=== PATIENT | female | born 1975 ===

== ENCOUNTER 2016-12-24 07:30 | Observation (INO) | payer MEDICARE ==
[~2016-12-24] VITALS: Ht 162.6 cm; Wt 84.0 kg
[~2016-12-24 07:30] MED LIST: MICROFIBRILLAR COLLAGEN HEMOSTAT 1 GM PKT ONE; OXYMETAZOLINE HCL 0.05% 15 ML NASAL SPRAY ONE
--- NOTE | 2016-12-24 07:53 | MH ---
cc: FILI ZULETA M.D. DATE OF ADMISSION: 12/24/2016 ADMISSION DIAGNOSIS Recurrent peritonsillar abscess. HISTORY OF PRESENT ILLNESS Marisela Mayer is an otherwise healthy 41-year-old woman who has a history of numerous bouts of pharyngitis including two recent admissions as an inpatient for IV antibiotics for left parapharyngeal inflammation and possible abscess. She spent six days in the [facility], followed by three days at [facility] before her symptoms finally subsided. A CT scan was obtained which showed probable abscess in the left peritonsillar area which drained spontaneously. She complains of severe pain associated with fevers and sometimes absence from work. MEDICAL HISTORY Hypertension. Thyroid goiter. PAST SURGICAL HISTORY Surgical history includes total thyroidectomy. MEDICATIONS 1. Atenolol. 2. Levothyroxine. ALLERGIES She has no drug allergies. PHYSICAL EXAMINATION GENERAL: She is alert and cooperative. HEAD: Normocephalic and atraumatic. Face normal. ORAL CAVITY: Teeth in good condition. Tongue and mandible normal. There is moderate hypertrophy of tonsils bilaterally with some drainage from the left tonsil. There is no abscess on inspection or palpation. NECK: No nodes or masses of the larynx. Trachea midline. Well-healed scar overlying the level of the thyroid gland. EARS: Normal auricles, ear canals and tympanic membranes. Fiberoptic nasopharyngoscopy shows deviation of septum and moderate hypertrophy of adenoid tissue partially obstructing the nasopharynx. CHEST: Clear in all schuler. HEART: Regular rate and rhythm. Normal S1-S2. ASSESSMENT 1. Chronic tonsillitis. 2. Recurrent peritonsillar abscess. PLAN After discussion we elected to proceed with adenotonsillectomy. I reviewed the indications, common techniques, risks and benefits and expected postoperative course of the surgery. She expressed understanding and agreed to proceed. She is scheduled for December 24 at [facility] on a Same-Day Surgery basis. MD VIKTORIA Davalos/DAKOTAH /7:37 AM /7:48 AM
[2016-12-24 09:05] VITALS: BP 123/91; PULSE 107; RESP 16; TEMP 98.3; O2SAT 96
[2016-12-24] MEDS ORDERED: ATEN100T PO (09:15)
[2016-12-24] MEDS ORDERED: LEVO-86 PO (09:15)
[2016-12-24 09:23] LABS: HEMATOCRIT 47.5 % (35.0-46.0); MEAN CELL VOLUME 91.9 FL (80.0-100.0); MEAN CORPUSCULAR HEMOGLOBIN 30.6 PG (27.0-34.0); MEAN CORPUSCULAR HGB CONC 33.3 % (32.0-36.0); PLATELET COUNT 222 TH/MM3 (150-450); RED BLOOD COUNT 5.17 MIL/MM3 (4.00-5.30); RED CELL DISTRIBUTION WIDTH 12.8 % (11.6-17.2); REVIEW FLAG FINAL; WHITE BLOOD COUNT 14.8 TH/MM3 (4.0-11.0)
[2016-12-24] MEDS ORDERED: AMPICILLIN-SULBACTAM INJ 3 GM VIAL ONE (09:28)
[2016-12-24] MEDS ORDERED: LACTATED RINGER'S 1000 ML INJ 1,000 ML ONE (09:28)
[2016-12-24] MEDS ORDERED: SODIUM CHLORIDE 0.9% INJ 100 ML ONE (09:29)
[2016-12-24] MEDS ORDERED: MIDAZOLAM HCL 2 MG/2 ML VIAL ONE (10:59)
[2016-12-24] MEDS ORDERED: FAMOTIDINE 20 MG/2 ML VIAL ONE (10:59)
[2016-12-24] MEDS ORDERED: DEXAMETHASONE SOD PHOS 4 MG/ML VIAL ONE (10:59)
[2016-12-24] MEDS ORDERED: SUGAMMADEX SODIUM 200 MG/2 ML VIAL IV PUSH ONE ×2 (11:54)
[2016-12-24] MEDS ORDERED: PROPOFOL 200 MG/20 ML AMP IV ONE (12:00)
[2016-12-24] MEDS ORDERED: ONDANSETRON HCL 4 MG/2 ML VIAL IV PUSH ONE (12:00)
[2016-12-24] MEDS ORDERED: MORPHINE SULFATE 10 MG/ML INJ ONE (12:46)
[2016-12-24] MEDS ORDERED: HYDROmorphone HCL PF 1 MG/ML VIAL ONE (13:02)
[2016-12-24] MEDS ORDERED: ACETAMINOPHEN 325MG/HYDROcodone 7.5MG/15ML UDC PO PRN (13:30)
[2016-12-24] MEDS ORDERED: ONDANSETRON HCL 4 MG/2 ML VIAL IV PRN (13:30)
[2016-12-24] MEDS ORDERED: DO NOT ADM ANY ANTICOAGULANT DRUGS PRN (13:30)
[2016-12-24] MEDS: LACTATED RINGER'S 1000 ML INJ 1,000 ML IV SCH ×2 (13:30→21:30)
[2016-12-24 17:29] VITALS: BP 118/78; PULSE 83; RESP 15; TEMP 96.8; O2SAT 96
[2016-12-24] MEDS ORDERED: oxyCODONE/ACETAMINOPHEN 10 MG/325 MG TAB PO PRN (18:30)
[2016-12-24 20:00] VITALS: BP 112/85; PULSE 82; RESP 18; TEMP 97.3; O2SAT 97
[2016-12-24] MEDS: AMPICILLIN/SULBAC 3 GM/NS 100 ML IV SCH ×4 (20:00→21:29)
[2016-12-24] MEDS: oxyCODONE/ACETAMINOPHEN 10 MG/325 MG TAB PO PRN (20:45)
[2016-12-24] MEDS: ACETAMINOPHEN 325 MG TAB PO PRN (20:52)
[2016-12-25] VITALS: BP 114/73; PULSE 80; RESP 20; TEMP 96.7; O2SAT 100
[2016-12-25] MEDS: ACETAMINOPHEN 325 MG TAB PO PRN (03:09)
[2016-12-25] MEDS: oxyCODONE/ACETAMINOPHEN 10 MG/325 MG TAB PO PRN ×2 (03:09→09:13)
[2016-12-25] MEDS: AMPICILLIN/SULBAC 3 GM/NS 100 ML IV SCH ×2 (04:49)
[2016-12-25] MEDS ORDERED: LEVOTHYROXINE SODIUM 25 MCG TAB PO SCH (06:00)
[2016-12-25] MEDS ORDERED: LEVOTHYROXINE SODIUM 112 MCG TAB PO SCH (06:00)
[2016-12-25 08:00] VITALS: BP 132/89; PULSE 68; RESP 20; TEMP 95.8; O2SAT 99
[2016-12-25] MEDS ORDERED: ATENOLOL 50 MG TAB PO SCH (09:00)
[2016-12-25] MEDS: LACTATED RINGER'S 1000 ML INJ 1,000 ML IV SCH (09:14)
[2016-12-25 09:38] VITALS: O2SAT 98
--- NOTE | 2016-12-30 08:25 | MP ---
cc: FILI HANCOCK M.D. DATE OF SURGERY: 12/24/[address] Fili Hancock. PREOPERATIVE DIAGNOSIS 1. Adenotonsillar hypertrophy. 2. Chronic tonsillitis. 3. Bilateral peritonsillar abscess. POSTOPERATIVE DIAGNOSIS 1. Adenotonsillar hypertrophy. 2. Chronic tonsillitis. 3. Bilateral peritonsillar abscess. OPERATION PERFORMED 1. Adenotonsillectomy. 2. Bilateral drainage of peritonsillar abscesses. INDICATION Indications are documented in the history and physical. DESCRIPTION OF OPERATION The patient was taken to OR #2 and placed in the supine position. Following induction of general anesthesia and intubation a shoulder roll, a Sascha head drape and a McIvor mouth gag were put in place. A soft catheter was advanced into the right naris and brought out through the oral cavity to retract the soft palate. The left side was addressed first and using electrocautery incision was made along the superior curvature of the tonsillar pillar, this was carried down to the tonsil capsule. At this point using a Smart tonsil hemostat the dissection continued along the tonsillar capsule until purulent material was encountered. This exposed the abscess cavity. This was suctioned and then dissection with electrocautery continued along the margins of the abscess cavity, freeing the tonsil from the tonsil fossa. This continued to the inferior limit of the tonsil which was then passed off the field as specimen. The right tonsil was then operated in the same fashion. There was a lesser collection of abscess and purulence on this side. When this was completed the adenoids were reduced using the suction Bovie at 45 leigh. Both tonsil cavities were packed with tonsil sponge packs saturated in Oxymetazoline which were in place for a period of approximately 5 minutes. They then removed and individual sites of bleeding were cauterized using the suction Bovie at 35 leigh. Stomach was aspirated of several ccs of bilious gastric contents using a #18 [place] sump NG tube and when this was completed the mouth gag was removed and the procedure was terminated. The patient was reversed from anesthesia and taken to recovery in good condition. There were no complications. Blood loss was 60 mL. MD VIKTORIA Davalos/JORGE /8:04 AM /8:14 AM
== END 2016-12-25 10:12 | disposition home or self-care (01) ==
LOC: PHSDC 07:30 → HSDI 12:17 → PH3A 12:48
PROVIDERS: ADMIT Otolaryngology; ATTEND Otolaryngology
DX: J35.01 Chronic tonsillitis (principal); J35.3 Hypertrophy of tonsils with hypertrophy of adenoids
CPT/HCPCS: 00170; 42821; 85027; 88300; 94762; G0378; J0295; J1100; J1170; J2250; J2405; J3010; J7120; 94760; J2270